=== PATIENT | male | born 1990 | race Two or more races ===

== ENCOUNTER 2018-11-05 15:26 | Inpatient (IN) | payer MEDICAID ==
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
--- NOTE | 2018-11-05 15:37 | EDPHY ---
H & P Time Seen by Provider: 11/05/18 15:30 Source: Patient Exam Limitations: No limitations - Medical/Surgical History Hx Asthma: No Hx Chronic Respiratory Disease: No Hx Diabetes: No Hx Cardiac Disease: No Hx Renal Disease: No Hx Cirrhosis: No Hx Alcoholism: No Hx HIV/AIDS: No Hx Splenectomy or Spleen Trauma: No Other PMH: hep c - Social History Smoking Status: Current every day smoker Allergies/Adverse Reactions: acetaminophen [From Tylenol] Allergy (Verified 12/17/15 05:43) Home Medications: Medication Instructions Recorded NK [No Known Home Meds] 12/17/15 Departure - Departure Referrals: Patient,NotPresent [Primary Care Provider] - As per Instructions
[2018-11-05 16:45] LABS: PLATELET COUNT 237 10^3/uL (150-400)
--- NOTE | 2018-11-05 18:55 | ASMTLCPROG ---
Notes Note: Notes: Pt already had full eval at [facility] and was placed on an M1. Pt did not qualify for medical respite and pt made suicidal statements to [facility] worker and was then placed on an M1 hold. This job specification writer met with pt. Pt initially was hostile and highly agitated, remained labile throughout the evaluation. Pt stated, "I'm not homicidal, I'm not suicidal, just let me go." Pt then stated, " I wish a car would run me over but I didn't say I was suicidal but if happened, oh well I got my wish." Pt stated, " What's the use of living? I hate myself.. Pt stated he has family here in [place] but does not want to stay with them and stated, " They are wetbacks. I'm a wetback." Pt made multple statements about, " There is no God. Fuck God. There ain't no God. I'm selling my soul to to the devil. I'm gonna let the devil control me." Pt states he wants to leave the hospital, "panhandle for money" and go to [place] where "hopefully he will get killed by the cartel." This job specification writer asked pt if he would like something to eat or drink and pt stated, " Yeah I'm hungry but I'm not gonna beg the fucking pigs." This job specification writer offerred to get food for pt. Pt declined again and stated, " I'll drink my own piss and shit." Date Signed: 11/05/2018 06:54 PM Electronically Signed By:Nia Haji
[2018-11-05] MEDS ORDERED: OLANZapine 10 MG/2 ML VIAL ONE (19:16)
[2018-11-05] MEDS ORDERED: OLANZapine 10 MG/2 ML VIAL IM ONE (19:42)
--- NOTE | 2018-11-05 20:27 | ASMTLCPROG ---
Notes Note: Notes: Bed Search [facility]- faxed clinicals [facility]- declined due to acuity [facility]- no beds [facility]- Faxed clinicals [facility]-faxed [facility]- no beds avail Date Signed: 11/05/2018 08:26 PM Electronically Signed By:Nia Haji
[2018-11-06] MEDS ORDERED: LORazepam 1 MG TAB PO ONE (07:40)
[2018-11-06] MEDS ORDERED: LORazepam 1 MG TAB ONE (07:41)
[2018-11-06] MEDS ORDERED: OLANZapine 10 MG/2 ML VIAL ONE ×2 (07:53→16:16)
[2018-11-06] MEDS ORDERED: OLANZapine 10 MG/2 ML VIAL IM ONE ×2 (08:01→16:21)
--- NOTE | 2018-11-06 18:13 | ASMTTCLDSP ---
TLC Discharge Disposition Disposition: Answers: Admit Discharge Concerns/Recommendations: Notes: In consultation on-call psychiatrist, Dave Callahan MD, concurred that pt appears to meet 27-65 criteria requiring psychiatric hospitalization as pt appears to be at risk of harm to self due to a mental illness condition. Pt was read the Patient Rights and Responsibilities Statement at [facility] before arriving at [facility]. For inpatient Dave Callahan MD admission, the following psychiatrist agreed to accept patient for [facility] Date Signed: 11/06/2018 06:12 PM Electronically Signed By:Nia Haji
[2018-11-06] MEDS ORDERED: MAG HYDROX/AL HYDROX/SIMETH 30 ML UDCUP PO PRN (19:17)
[2018-11-06] MEDS ORDERED: MAGNESIUM HYDROXIDE 30 ML UDCUP PO PRN (19:17)
[2018-11-06] MEDS ORDERED: ACETAMINOPHEN 325 MG TAB PO PRN (19:17)
[2018-11-06] MEDS: NICOTINE POLACRILEX 2 MG GUM B PRN (19:45)
[2018-11-07] MEDS: LORazepam 0.5 MG TAB PO PRN ×4 (02:35→23:58)
[2018-11-07] MEDS: IBUPROFEN 200 MG TAB PO PRN ×3 (02:35→20:34)
[2018-11-07] MEDS: NICOTINE POLACRILEX 2 MG GUM B PRN ×2 (08:05→11:06)
--- NOTE | 2018-11-07 08:25 | ASMTBHMTP ---
Master Treatment Plan Master Treatment Plan Answers: Depressed Mood with for: Suicidal Ideation Date: 11/07/2018 Diagnosis on Admission: MDD Expected length of stay: 3-5 Reason for admission: Notes: Pt already had full eval at [facility] and was placed on an M1. Pt did not qualify for medical respite and pt made suicidal statements to [facility] worker and was then placed on an M1 hold. This designer/writer met with pt. Pt initially was hostile and highly agitated, remained labile throughout the evaluation. Pt stated, "I'm not homicidal, I'm not suicidal, just let me go." Pt then stated, " I wish a car would run me over but I didn't say I was suicidal but if happened, oh well I got my wish." Pt stated, " What's the use of living? I hate myself.. Pt stated he has family here in [place] but does not want to stay with them and stated, " They are wetbacks. I'm a wetback." Pt made multple statements about, " There is no God. Fuck God. There ain't no God. I'm selling my soul to to the devil. I'm gonna let the devil control me." Patient's stated presenting problems: Notes: Ct. refused to engage with this CC. He said he doesn't know why he was admitted to the unit. Patient's goals for treatment: Notes: "I want to stay sober". Patient's strengths: Notes: Refused to answer. Identify supports outside of hospital: Notes: Refused to answer. Discharge criteria: Notes: Suicidal ideation will resolve and ct. will have a plan to safely manage recurrent SI. Initial disposition plan/considerations: Notes: Ct. will be cooperative with staff and other cts. Maintain good hygiene. Master Treatment Plan Required Signatures Psychiatrist signature: Answers: Psychiatrist: RN on-shift signature: Answers: RN: Patient signature: Answers: Patient: Date Signed: 11/07/2018 08:21 AM Electronically Signed By:Monica Thomas
--- NOTE | 2018-11-07 08:32 | ASMTCMCOM ---
CM Note CM Note Notes: CC met with ct. to develop MTP. Ct. was in a wheelchair dressed with hospital gown without underwear. Ct. was hard to understand and escalated quickly after this CC asked him to repeat his answer. He started cursing and refused to engage. He left the room and went back to his bedroom. Date Signed: 11/07/2018 08:31 AM Electronically Signed By:Monica Thomas
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
[2018-11-07] MEDS: OLANZapine DISINTEGR 10 MG TAB PO PRN ×3 (11:06→23:58)
--- NOTE | 2018-11-07 12:58 | PDMN ---
Medical Necessity Medical necessity: Pt meets IP criteria per & WANDA [id number]; est los >2 mn for eval/tx of major depressive disorder; pt on M1 hold due to risk of harm to self; admit for safety, crisis stabilization & med eval; per CM report & order
--- NOTE | 2018-11-07 13:28 | ASMTCMCOM ---
CM Note CM Note Notes: CC tried to meet with ct to develop MTP. Ct. escalated very quickly and stormed out of the room. Ct. requested to meet with this CC later in the day. He reported that he came to [place] at the beginning of the month at the advised of his doctor from [place]. Per ct. his doctor told him that he can get better care in [place]. Ct. is hoping to get into a [facility] inpatient facility. Ct. escalated again when CC discussed outpatient treatment options instead. Ct. ended the conversation abruptly. He signed a THAI to [facility] and to a hospital in [place]. Date Signed: 11/07/2018 01:24 PM Electronically Signed By:Monica Thomas
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
[2018-11-08] MEDS: LORazepam 0.5 MG TAB PO PRN ×3 (07:12→19:43)
[2018-11-08] MEDS: OLANZapine DISINTEGR 10 MG TAB PO PRN ×3 (07:13→19:43)
[2018-11-08] MEDS: NICOTINE POLACRILEX 2 MG GUM B PRN ×4 (07:14→18:26)
[2018-11-08] MEDS: IBUPROFEN 200 MG TAB PO PRN ×2 (12:08→23:26)
--- NOTE | 2018-11-08 13:04 | ASMTBHDC ---
Notes Note: Notes: The patient participated in clinical treatment team rounds; he was irritable, engaged, appropriate. The patient expressed interest in maintaining sobriety and discussed relapse prevention planning. The patient repeatedly requested discharge citing that [facility] would not be able to adequately meet his outpatient needs. The patient reiterated that he "wanted to go to the street today" rather than "be sent to the street in a few days." The patient requested inpatient rehab for PT, OT, and speech. The patient was previously in an acute rehab. The team recommended the patient remain in the hospital on a voluntary basis to continue tx including further discharge planning. Date Signed: 11/08/2018 01:03 PM Electronically Signed By:Payton Cardoza
--- NOTE | 2018-11-08 13:40 | SOAPPROG ---
SOAP Progress Note Assessment/Plan: Assessment: Plan: 11/08/18 13:40 Mood: Remains irritable, hostile. Generally unwilling to work with team. Will hold until his M-1 is up and try to provide information on a possible rehab referral. If he insists on leaving, I do not believe he meets criteria for a STC and will likely allow him to go. I have, however, encouraged him to stay on a voluntary basis. Subjective: Pt seen, discussed with staff. Less irritable today. Able to meet with Treatment Team and discuss care. He continues to identify "rehab" as his primary goal. We discussed how he can get an evaluation here and he is initially agreeable, then states he wants to d/c if his hold is up. He states, "I know if I leave I'm just going to drink and look for drugs." Continues to deny SI now or prior to admission. He is informed that his hold is up around 1400 and that we will need to decide his legal status by then. Marginally groomed, guarded, but cooperative. Affect is restricted, irritable. Mood is "bad." TP is generally linear. TC reveals no psychosis. Denies SI/ HI/. Objective: Vital Signs Temp Pulse Resp BP Pulse Ox 36.4 C 104 H 16 136/88 H 96 11/08/18 04:50 11/08/18 04:50 11/08/18 04:50 11/08/18 04:50 11/08/18 04:50 - Time Spent With Patient Time Spent With Patient: 25" ICD10 Worksheet Patient Problems: Problems Problem Status Onset Severe major depression Acute Suicidal ideation Acute
[2018-11-09] MEDS: LORazepam 0.5 MG TAB PO PRN ×3 (04:21→19:49)
[2018-11-09] MEDS: OLANZapine DISINTEGR 10 MG TAB PO PRN ×4 (04:21→20:37)
[2018-11-09] MEDS: NICOTINE POLACRILEX 2 MG GUM B PRN ×9 (04:32→19:52)
[2018-11-09] MEDS: IBUPROFEN 200 MG TAB PO PRN ×3 (07:09→19:40)
[2018-11-09] MEDS: FLUoxetine 20 MG CAP PO SCH (13:15)
--- NOTE | 2018-11-09 14:12 | ASMTBHDC ---
Notes Note: Notes: Pt. reports feeling "alright". Pt. reports being hungry and requesting additional food, prior to lunch arriving. Pt. reports he "slept pretty good". Pt. reports no issues with his current medications. Pt. reports attending groups. Pt. stated he spoke with the director and will be going to [facility]. Pt. stated he doesn't want to stay in the hospital any more. Pt. reports wanting to smoke a cigarette. Pt. denied SI, HI, AVH and paranoia. Pt. presents as alert, calm, friendly, good eye contact, difficult to understand at times, and cooperative. Staff report pt. sleeping 7 hours and being mostly compliant with his medications. CC filled pt's prescription for his discharge. Pt. will potentially discharge tomorrow. PT/OT and speech evaluation ordered. Date Signed: 11/09/2018 02:11 PM Electronically Signed By:Anayeli Maradiaga
--- NOTE | 2018-11-09 14:36 | SOAPPROG ---
CAT Progress Note Assessment/Plan: Assessment: Plan: 11/08/18 13:40 Mood: Remains irritable, hostile. Generally unwilling to work with team. Will hold until his M-1 is up and try to provide information on a possible rehab referral. If he insists on leaving, I do not believe he meets criteria for a STC and will likely allow him to go. I have, however, encouraged him to stay on a voluntary basis. 11/09/18 14:35 Mood: Less irritable. Back on meds. Await rehab consult. Pt is voluntary and will be allowed to leave is her requests again. He exhibits poor reasoning and marginal impulse control, though is not gravely disabled or an imminent risk to himself or others. Will continue to attempt to provide a full eval for physical and cognitive rehab needs. Subjective: Pt seen, discussed with staff. Did not leave last night due to last minute change of heart. He states that he continues to want inpatient rehab and an order for an evaluation was entered yesterday. He also stated today that he wants to restart Prozac and Seroquel today despite being against that yesterday. CC sought prescriptions to get filled outpatient for patient to take pills on d/c. Calmer, less irritable, generally coop. Affect is o/w restricted, stable. Mood is "better." TP is linear. TC reveals no psychosis. Denies SI/HI/. Objective: Vital Signs Temp Pulse Resp BP Pulse Ox 36.8 C 107 H 16 156/79 H 96 11/09/18 06:00 11/09/18 06:00 11/09/18 06:00 11/09/18 06:00 11/09/18 06:00 - Time Spent With Patient Time Spent With Patient: 15" ICD10 Worksheet Patient Problems: Problems Problem Status Onset Severe major depression Acute Suicidal ideation Acute
[2018-11-09] MEDS ORDERED: QUEtiapine FUMARATE 50 MG TAB PO SCH (21:00)
[2018-11-10] MEDS: LORazepam 0.5 MG TAB PO PRN ×2 (03:11→08:54)
[2018-11-10] MEDS: OLANZapine DISINTEGR 10 MG TAB PO PRN ×2 (03:12→08:55)
[2018-11-10] MEDS: IBUPROFEN 200 MG TAB PO PRN (04:13)
[2018-11-10] MEDS: NICOTINE POLACRILEX 2 MG GUM B PRN ×2 (04:31→08:55)
[2018-11-10] MEDS ORDERED: NICOTINE POLACRILEX 2 MG GUM B ONE (06:52)
[2018-11-10 07:12] VITALS: BP 149/93
[2018-11-10] MEDS: FLUoxetine 20 MG CAP PO SCH (08:55)
== END 2018-11-10 09:49 | disposition home or self-care (01) | DRG 754 ==
LOC: EDUNIT# → EEVIPCON 15:26 → BBEH 11-06 18:45
PROVIDERS: ADMIT Psychiatry & Neurology Psychiatry; ATTEND Psychiatry & Neurology Psychiatry
DX: F32.9 Major depressive disorder, single episode, unspecified (principal); G81.91 Hemiplegia, unspecified affecting right dominant side; Z76.5 Malingerer [conscious simulation]; Z59.0 Homelessness; Z91.5 Personal history of self-harm; G89.29 Other chronic pain; F15.90 Other stimulant use, unspecified, uncomplicated; E78.5 Hyperlipidemia, unspecified; F17.200 Nicotine dependence, unspecified, uncomplicated; B19.20 Unspecified viral hepatitis C without hepatic coma; F12.90 Cannabis use, unspecified, uncomplicated; Z87.820 Personal history of traumatic brain injury
CPT/HCPCS: 80305; G0480